=== PATIENT | female | born 1985 | race Caucasian/White ===

== ENCOUNTER 2017-02-05 13:38 | Emergency (ER) | payer MEDICAID, OTHER ==
[~2017-02-05] VITALS: Ht 160 cm; Wt 78.5 kg
[~2017-02-05 13:38] MED LIST: IBUP-1542 PO; PREN-39 PO
[2017-02-05 13:48] VITALS: Ht 160 cm; Wt 78.5 kg
--- NOTE | 2017-02-05 15:13 | ERD ---
ER Documentation Chief Complaint Date/Time DATE: 02/05/17 TIME: 15:01 Chief Complaint LOWER BACK PAIN X 3 DAYS HPI 31-year-old otherwise healthy female presents to the emergency department complaining of gradually worsening lower back pain and headache 3 days. Patient currently rates her pain as a 6 out of 10 constant throbbing pain located throughout her lower back but worse on the right side. She states the pain does not radiate. Patient states her pain is worse when lying down. She describes her headache as a gradually worsening, frontal, 7 out of 10 intermittent throbbing pain. she has attempted to treat her pain with Tylenol at home with only temporary relief. Patient notes associated nausea. Patient also reports frequency of urination and dark yellow urine but denies dysuria or hematuria. She denies any recent trauma, saddle anesthesia, or bowel or bladder dysfunction. Patient denies any recent fever, numbness, tingling, rash , abdominal pain, vomiting, diarrhea, cough, sore throat, vaginal discharge. Patient's last period was 15 January and normal for her. ROS All systems reviewed and are negative except as per history of present illness. Medications Home Meds Active Scripts Hrqsztbpxp-Vxkrmtfbqymva-Gnngkxip* (Fioricet*) 50-300-40 Mg Capsule, 1 CAP PO Q4H Y for HEADACHE for 7 Days, CAP Prov:SOCORRO CHAN PA-C 02/05/17 Ibuprofen* (Motrin*) 600 Mg Tab, 600 MG PO Q6, #30 TAB Prov:SOCORRO CHAN PA-C 02/05/17 Cephalexin* (Keflex*) 500 Mg Capsule, 500 MG PO TID for 7 Days, CAP Prov:SOCORRO CHAN PA-C 02/05/17 Ibuprofen* (Ibuprofen*) 600 Mg Tab, 600 MG PO Q6, #20 TAB 0 Refills Prov:YOVANY SABILLON MD 09/26/15 Reported Medications Vits W-Ca,Fe,Fa(<1MG) ( Vitamins) 1 Tab Tablet, 1 TAB PO DAILY , TAB 08/28/15 Allergies Allergies: Coded Allergies: No Known Drug Allergies (Verified Allergy, Unknown, 08/28/15) Physical Exam Vitals Vital Signs Date Time Temp Pulse Resp B/P Pulse Ox O2 Delivery O2 Flow Rate FiO2 02/05/17 13:48 97.6 74 18 105/55 99 Physical Exam Const: Well-developed, well-nourished, nontoxic, no acute distress Head: Atraumatic Eyes: Normal Conjunctiva ENT: EOMs intact, PERRLA. Normal External Ears, Nose and Mouth. Neck: Full range of motion.~ No meningismus. Resp: Clear to auscultation bilaterally Cardio: Regular rate and rhythm, no murmurs Abd: Soft, non tender, non distended. Normal bowel sounds Skin: No petechiae or rashes Back: No evidence of bruising, deformity, injury, or erythema. Patient has full range of motion at the hip joint upon flexion and extension. Patient able to ambulate normally and without discomfort. Distal lower extremity sensation intact. Distal lower extremities warm and well perfused. Pedal pulses 2+ equal bilateral. Right sided flank tenderness. mild lower midline tenderness. Ext: No cyanosis, or edema Neur: Cranial nerves II through X intact. Awake and alert Psych: Normal Mood and Affect Procedures/MDM This is an otherwise healthy, well-appearing, 31-year-old female who presents with gradually worsening headache, right-sided back pain, frequency of urination and darkened urine 3 days. Patient denies any history of low back pain nor recent trauma. Patient has full range of motion at her hip joint and is able to ambulate without difficulty. Patient's vital signs reviewed. Patient afebrile, not tachycardic, not hypoxic and normotensive. The patient's low back pain is unlikely related to serious etiology. The patient exhibits no clinical signs or symptoms and has no history or risk factors to suggest cauda equina, cord compression, epidural abscess, epidural hematoma, acute aortic aneurysm or dissection. Additionally, the patient's headache is unlikely related to serious etiology. The patient does not exhibit any clinical signs or symptoms, and has no risk factors to suggest headache etiology such as subarachnoid hemorrhage, acute vertebral or carotid dissection, intracranial mass, epidural, subdural hematoma, dural venous sinus thrombosis, giant cell arteritis, or pseudotumor cerebri. Patient history and physical consistent with acute low back pain versus urinary tract infection. Patient to begin pain medication as well as antibiotic. I instructed the patient to follow-up with primary care orthopedic referral if pain continues. Patient to return immediately if she experiences symptoms of worsening pain with associated fever, saddle anesthesia, or bowel or ladder incontinence. Based on patient's history of present illness and physical examination the decision was made to discharge. There is no evidence of life threatening injuries or illnesses at this time. On re-examination, patient resting in no distress, stable vital signs, reports feeling better and safe for discharge with outpatient follow up with PMD in 1-2 days. Patient given return precautions. Departure Diagnosis: Primary Impression: Back pain Back pain location: low back pain Chronicity: acute Back pain laterality: midline Sciatica presence: without sciatica Qualified Code: M54.5 - Acute midline low back pain without sciatica Additional Impressions: Flank pain Frequency of urination Headache Headache type: unspecified Headache chronicity pattern: acute headache Intractability: not intractable Qualified Code: R51 - Acute nonintractable headache, unspecified headache type Condition: Good SOCORRO CHAN PA-C February 05, 2017 15:12
[2017-02-05] MEDS ORDERED: BUTA1CAP38 PO (15:15)
[2017-02-05] MEDS ORDERED: CEPH-443 PO (15:15)
[2017-02-05] MEDS ORDERED: IBUP-1542 PO (15:15)
== END 2017-02-05 15:22 | disposition home or self-care (01) ==
LOC: E/R 13:38
DX: M54.5 Low back pain (principal); R10.9 Unspecified abdominal pain; R35.0 Frequency of micturition; R51 Headache
CPT/HCPCS: 99284

== ENCOUNTER 2019-05-01 16:33 | Emergency (ER) | payer BC, MEDICAID ==
[~2019-05-01] VITALS: Ht 162.6 cm; Wt 80.7 kg
[~2019-05-01 16:33] MED LIST changes: +ACET325T33 PO; +BUTA1CAP38 PO; +CEPH-443 PO
[2019-05-01 16:37] VITALS: Ht 162.6 cm; Wt 80.7 kg
[2019-05-01] MEDS ORDERED: ONDANSETRON 4 MG INJ IV STA (17:25)
[2019-05-01] MEDS ORDERED: SOD CHLORIDE 0.9% 500 ML IV STA (17:25)
[2019-05-01] MEDS ORDERED: HYDROCODONE/APAP (5/325) TAB PO STA (17:25)
--- NOTE | 2019-05-01 17:25 | ERD ---
ER Documentation Chief Complaint Chief Complaint pt reports CRAMER and 16 wks preg HPI 33-year-old female, G3, P2 with EGA 16 weeks by LMP, presents to the emergency department, complaining of 3 days with worsening of headache, associated with nausea and vomiting. The patient denies fever, chills, no upper respiratory symptoms, no abdominal pain, no vaginal bleeding. The patient has established care with Dr.Anhtuan Loaiza. ROS All systems reviewed and are negative except as per history of present illness. Medications Home Meds Active Scripts Acetaminophen* (Tylenol*) 325 Mg Tablet, 2 TAB PO Q6 PRN for PAIN AND OR ELEVATED TEMP, #20 TAB Prov:ROMÁN WHITLEY MD 05/01/19 Cephalexin* (Keflex*) 500 Mg Capsule, 500 MG PO QID for 7 Days, CAP Prov:ROMÁN WHITLEY MD 05/01/19 Fjdrqnvmzz-Trehipvenvwpv-Esagminz* (Fioricet*) 50-300-40 Mg Capsule, 1 CAP PO Q4H PRN for HEADACHE for 7 Days, CAP Prov:SOCORRO CHAN-C 02/05/17 Ibuprofen* (Motrin*) 600 Mg Tab, 600 MG PO Q6, #30 TAB Prov:SOCORRO CHAN PA-C 02/05/17 Cephalexin* (Keflex*) 500 Mg Capsule, 500 MG PO TID for 7 Days, CAP Prov:SOCORRO CHAN-C 02/05/17 Ibuprofen* (Ibuprofen*) 600 Mg Tab, 600 MG PO Q6, #20 TAB 0 Refills Prov:YOVANY SABILLON MD 09/26/15 Reported Medications Vits W-Ca,Fe,Fa(<1MG) ( Vitamins) 1 Tab Tablet, 1 TAB PO DAILY, TAB 08/28/15 Allergies Allergies: Coded Allergies: No Known Drug Allergies (Verified Allergy, Unknown, 08/28/15) PMhx/Soc Medical and Surgical Hx: pt denies Medical Hx, pt denies Surgical Hx Hx Alcohol Use: No Hx Substance Use: No Hx Tobacco Use: No Smoking Status: Never smoker FmHx Family History: No diabetes, No coronary disease Physical Exam Vitals Vital Signs Date Temp Pulse Resp B/P (MAP) Pulse Ox O2 O2 Flow FiO2 Time Delivery Rate 8/4/19 98.3 79 20 116/58 100 Room Air 19:32 (77) 05/01/19 100.3 92 20 118/55 100 16:37 (76) Physical Exam Const: No acute distress Head: Atraumatic Eyes: Normal Conjunctiva ENT: Normal External Ears, Nose and Mouth. Neck: Full range of motion. No meningismus. Resp: Clear to auscultation bilaterally Cardio: Regular rate and rhythm, no murmurs Abd: Soft, non tender, non distended. Normal bowel sounds Skin: No petechiae or rashes Back: No midline or flank tenderness Ext: No cyanosis, or edema Neur: Awake and alert Psych: Normal Mood and Affect Result Diagram: 05/01/19 1729 05/01/19 1729 Results 24 hrs Laboratory Tests Test 05/01/19 17:28 05/01/19 17:29 05/01/19 17:32 05/01/19 17:34 Urine Color YELLOW Urine Clarity SLIGHTLY CLOUDY Urine pH 7.0 Urine Specific 1.011 [place] Urine Ketones NEGATIVE mg/dL Urine Nitrite NEGATIVE mg/dL Urine Bilirubin NEGATIVE mg/dL Urine Urobilinogen NEGATIVE mg/dL Urine Leukocyte 2+ Kristine/ul Esterase Urine Microscopic 3 /HPF RBC Urine Microscopic 17 /HPF WBC Urine Squamous FEW /HPF Epithelial Cells Urine Bacteria FEW /HPF Urine Hemoglobin 1+ mg/dL Urine Glucose NEGATIVE mg/dL Urine Total Protein NEGATIVE mg/dl White Blood Count 6.4 10^3/ul Red Blood Count 4.01 10^6/ul Hemoglobin 12.1 g/dl Hematocrit 36.1 % Mean Corpuscular 90.0 fl Volume Mean Corpuscular 30.2 pg Hemoglobin Mean Corpuscular 33.5 g/dl Hemoglobin Concent Red Cell 12.8 % Distribution Width Platelet Count 231 10^3/UL Mean Platelet 10.0 fl Volume Immature 1.700 % Granulocytes % Neutrophils % 69.7 % Lymphocytes % 15.8 % Monocytes % 12.3 % Eosinophils % 0.0 % Basophils % 0.5 % Nucleated Red Blood 0.0 /100WBC Cells % Immature 0.110 10^3/ul Granulocytes # Neutrophils # 4.5 10^3/ul Lymphocytes # 1.0 10^3/ul Monocytes # 0.8 10^3/ul Eosinophils # 0.0 10^3/ul Basophils # 0.0 10^3/ul Nucleated Red Blood 0.0 10^3/ul Cells # Sodium Level 134 mmol/L Potassium Level 3.7 mmol/L Chloride Level 99 mmol/L Carbon Dioxide 26 mmol/L Level Anion Gap 9 Blood Urea Nitrogen 5 mg/dl Creatinine 0.58 mg/dl Est Glomerular > 60 mL/min Filtrat Rate mL/min Glucose Level 99 mg/dl Calcium Level 9.3 mg/dl Bedside Urine pH 7.0 (LAB) Bedside Urine 1+ Protein (LAB) Bedside Urine Negative Glucose (UA) Bedside Urine Negative Ketones (LAB) Bedside Urine Blood Trace-lysed Bedside Urine Negative Nitrite (LAB) Bedside Urine 1+ Leukocyte Esterase (L POC Beta HCG, POSITIVE Qualitative Current Medications Medications Dose Sig/Amanda Start Time Status Last (Trade) Ordered Route PRN Stop Time Admin Dose Reason Admin Sodium 500 ml @ Q1H STAT 05/01/19 DC 05/01/19 Chloride 500 mls/hr IV 17:25 05/01/19 17:41 18:24 1 tab ONCE STAT 05/01/19 DC 05/01/19 Acetaminophen PO 17:25 05/01/19 17:40 / 17:28 Hydrocodone Bitart ([place] (5/325)) Ondansetron 4 mg ONCE STAT 05/01/19 DC 05/01/19 HCl (Zofran IV 17:25 05/01/19 17:40 Inj) 17:28 Ceftriaxone 50 ml @ ONCE ONCE 05/01/19 DC 05/01/19 Sodium 100 mls/hr IVPB 19:00 05/01/19 19:03 19:29 Patient: CHRISTIANO FLORES : 1985 Age: 33 Sex: F [id number] DOS: 05/01/19 1725 Ordering MD: ROMÁN WHITLEY MD Location: [facility] Room/Bed: PROCEDURE: US OB. CLINICAL INDICATION: , headache. TECHNIQUE: Multiple sonographic images of the pelvis were obtained. Transabdominal imaging only was performed. The images were reviewed on a PACS workstation. COMPARISON: No prior studies are available for comparison. FINDINGS: There is a single live intrauterine gestation. Cardiac activity is present with 161 beats per minute. There is a variable presentation. Measurements were made in order to determine age. The results are as follows: BPD = 3.99 cm HC = 14.64 cm AC = 11.92 cm FL = 2.34 cm Estimated gestational age of approximately 17 weeks 5 days. The estimated date of delivery is 10/04/2019. The EFW = 194 g (7 ounces). EFW percentile: 35% The placenta is posterior, grade 0-1. There is no evidence for an abruption or placenta previa. There is a normal amount of amniotic fluid. The MVP measures 5.0 cm. IMPRESSION: Single live intrauterine gestation of approximately 17 weeks 5 days, based on ultrasound measurements. The estimated date of delivery is 10/04/2019. EFW percentile: 35%. Procedures/MDM Differential diagnosis include but not limited to: UTI, colitis, gastroenteritis, kidney stones, irritable bowel syndrome, inflammatory bowel syndrome, malabsorption syndrome, cholelithiasis, food intolerance, medication side effect, pancreatitis, diverticulitis, bowel obstruction. Low suspicion for acute abdomen Physical examination and clinical presentation consistent most likely with urinary tract infection. During the ED course the patient remained stable, no new complaints. Results and clinical impression discussed with patient who agrees with management. The patient is stable to be treated outpatient and will be discharged home, some side effects of prescribed medications (headache, rash, nausea, vomiting, diarrhea, drowsiness, habituation, bleeding, hypertension, interactions with other medications) were reviewed. The patient was instructed to follow up with the primary care provider in the next 48h. If symptoms persist, worsen or new symptoms develop, then patient should return to the ED immediately. Instructions explained and given directly by me to the patient with acknowledgment and demonstrated understanding. Disclaimer: Inadvertent spelling and grammatical errors are likely due to EHR/dictation software use and do not reflect on the overall quality of patient care. Also, please note that the electronic time recorded on this note does not necessarily reflect the actual time of the patient encounter. Departure Diagnosis: Primary Impression: UTI (urinary tract infection) Additional Impression: 17 weeks gestation of Condition: Stable Additional Instructions: Muchas haider por [facility] para shukla servicio. Esperamos que en shukla visita a la te de emergencia shukla problema medico haya sido solucionado y que se sienta mucho mejor. Para estar seguros que shukla mejoria sigue en proceso, le pedimos el favor de hacer yvrose fanny de seguimiento medico con shukla doctor primario en los proximos 2-4 maciel. Lleve con usted estos documentos y las medicinas recetadas. Si anusha sintomas empeoran, NO SE ESPERE, por favor regrese a te de emergencia INMEDIATAMENTE. En gay que usted no tenga un mdico de atencin primaria: Llame al mdico o clnica comunitaria de referencia que aparece abajo ladarius las horas de consultorio para hacer yvrose fanny para que le vean. CLINICAS: [facility] [phone] [facility] [phone] [facility] [phone] [facility] [phone] [facility] [phone] [id number] [facility]. [phone] ROMÁN PEREZ MD May 01, 2019 17:25
[2019-05-01] MEDS ORDERED: CEFTRIAXONE 1 GM/50 ML (PMX) 50 ML IVPB ONE (19:00)
[2019-05-01 19:32] VITALS: BP 116/58; PULSE 79; RESP 20
== END 2019-05-01 19:34 | disposition home or self-care (01) ==
LOC: FTE 16:33
DX: O23.42 Unspecified infection of urinary tract in pregnancy, second trimester (principal); R51 Headache; Z3A.17 17 weeks gestation of pregnancy
CPT/HCPCS: 36415; 76805; 80048; 81001; 81003; 81025; 85025; 87086; 96361; 96365; 96375; J0696; J2405; J7040; Z7502; Z7610

== ENCOUNTER 2019-07-27 11:32 | Inpatient (IN) | payer MEDICAID ==
[~2019-07-27] VITALS: Ht 167.6 cm; Wt 84.4 kg
[~2019-07-27 11:32] MED LIST changes: +NIFE10CA PO
[2019-07-27 12:04] VITALS: Ht 167.6 cm; Wt 84.4 kg
[2019-07-27 12:05] VITALS: BP 118/67; PULSE 86; RESP 19
[2019-07-27] MEDS ORDERED: TERBUTALINE 1 ML ONE (14:37)
[2019-07-27] MEDS ORDERED: TERBUTALINE 1 MG/ML INJ SC ONE (15:00)
[2019-07-27] MEDS ORDERED: LACTATED RINGER'S 1,000 ML IV ONE (15:00)
[2019-07-27] MEDS ORDERED: LACTATED RINGER'S 1,000 ML IV SCH (15:00)
[2019-07-27] MEDS ORDERED: MAGNESIUM SULFATE 20 GM/500 ML 500 ML IV SCH (16:37)
[2019-07-27] MEDS ORDERED: MAGNESIUM SULFATE 4 GM/100 ML 100 ML IV ONE (17:00)
[2019-07-27] MEDS: BETAMET NA PHOS/AC (6 MG/ML) 2 ML INJ SYG IM SCH (17:26)
[2019-07-27] MEDS: MAGNESIUM SULFATE 40GM/1000ML 1,000 ML IV SCH (18:29)
[2019-07-28] MEDS: LACTATED RINGER'S 1,000 ML IV SCH ×4 (00:37→17:07)
[2019-07-28] MEDS: PRENATAL VITAMIN PO SCH (09:07)
[2019-07-28] MEDS: FERROUS SULFATE (EC) 325 MG TAB PO SCH (09:07)
[2019-07-28] MEDS: MAGNESIUM SULFATE 40GM/1000ML 1,000 ML IV SCH (15:36)
[2019-07-28] MEDS: BETAMET NA PHOS/AC (6 MG/ML) 2 ML INJ SYG IM SCH (17:07)
[2019-07-28] MEDS: NIFEdipine 10 MG CAP PO SCH (18:27)
[2019-07-29] MEDS: LACTATED RINGER'S 1,000 ML IV SCH ×3 (00:55→16:37)
[2019-07-29] MEDS: NIFEdipine 10 MG CAP PO SCH ×4 (05:55→17:31)
[2019-07-29] MEDS ORDERED: DOCUSATE SODIUM 100 MG CAP PO SCH (09:00)
[2019-07-29] MEDS: FERROUS SULFATE (EC) 325 MG TAB PO SCH (09:29)
[2019-07-29] MEDS: PRENATAL VITAMIN PO SCH (09:29)
== END 2019-07-29 18:59 | disposition home or self-care (01) | DRG 833 ==
LOC: OBT 11:32 → L-D 11:32 → OBT 16:37 → L-D 17:01 → PP1 07-28 23:21
PROVIDERS: ADMIT Obstetrics & Gynecology; ATTEND Obstetrics & Gynecology
DX: O60.03 Preterm labor without delivery, third trimester (principal); Z3A.29 29 weeks gestation of pregnancy
CPT/HCPCS: 76817; 76818; 81001; 83735; 85025; 96361; 96372; G0463; J0702; J3105; J7120